=== PATIENT | male | born 1950 | race Hispanic/Latino ===

== ENCOUNTER 2019-05-27 09:33 | Inpatient (IN) ==
[2019-05-27] MEDS ORDERED: HUMULIN R 100 UNIT in NS 100 ML IV SCH ×2 (10:00→12:15)
[2019-05-27] MEDS ORDERED: MAGNESIUM SULFATE 2 GM/S.W.I. 2 GM/50 ML IVPB IV PRN ×2 (10:00→12:06)
[2019-05-27] MEDS ORDERED: D50W SYRINGE IV PRN ×3 (10:00→12:06)
[2019-05-27] MEDS ORDERED: NS 1,000 ML IV ONE ×3 (10:00→12:19)
[2019-05-27] MEDS ORDERED: HUMULIN R IV ONE (10:00)
[2019-05-27] MEDS ORDERED: POTASSIUM CHLORIDE 20 MEQ/SWI 20 MEQ/100 ML IVPB IV PRN ×3 (10:00→12:06)
[2019-05-27] MEDS ORDERED: POTASSIUM CHLORIDE 20% LIQUID PO PRN ×2 (10:00→12:06)
[2019-05-27] MEDS ORDERED: POTASSIUM CHLORIDE 10% LIQUID PO PRN ×2 (10:00→12:06)
[2019-05-27] MEDS ORDERED: SODIUM BICARBONATE 8.4% 100 MEQ in STERILE WATER INJ. 500 ML IV PRN ×2 (10:00→12:06)
[2019-05-27] MEDS ORDERED: SODIUM PHOSPHATE 30 MMOL in D5W 250 ML IV PRN ×2 (10:00→12:06)
[2019-05-27] MEDS ORDERED: NS 1,000 ML IV SCH (10:00)
--- NOTE | 2019-05-27 10:13 | PROVIDER DOCUMENTATION ---
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 is 68 yom that presents with c/o increased thirst and urination. Pt. denies any medical Hx and reports no allergies. Pt. denies any N/V but has reported some blurred vision. Location of Pain/Injury: reports: none. denies: head, face, mouth, neck, chest, upper extremity, hand(s), abdomen, back, pelvis, genitalia, lower extremity, feet, upper body, lower body, generalized, other Pain Radiation: reports: no radiation. denies: arm(s), back, buttocks, chest, epigastric, feet, groin, jaw, flank (L), legs (lower), LLQ, LUQ, neck, periumbilical, flank (R), RLQ, RUQ, shoulder(s), scapula, scrotal, sternal notch, suprapubic, legs (upper), urethral, vaginal, other Quality of Pain: reports: aching. denies: burning, pressure, tightness Severity: reports: mild. denies: moderate, severe Onset/Duration: reports: unsure, gradual Timing: reports: still present. denies: improving, intermittent, getting worse Context/Activities at Onset: reports: none. denies: light activity, moderate activity, vigorous activity, recent emotional stress, recent physical stress, recent trauma history, possible bad food, cold exposure, eating, out of country travel, rest, sleep, sexual activity, other Modifying Factors: improves with: nothing Associated Symptoms: reports: other (Blurred vision). denies: denies symptoms, anxiety, arm pain, back/neck pain, chest pain, constipation, cough, diaphoresis, diarrhea, dizziness, EENT symptoms, fatigue, fever/chills, genitourinary problems, headaches, heartburn, joint pain, loss of appetite, malaise, muscle aches, sinus congestion/drainage, nausea, rash, seizure, shortness of breath, sensory/motor loss, pain with inspiration, swelling/mass in abdomen, syncope, vomiting, weakness, trouble walking Similar Symptoms Previously?: Yes Recently seen or treated by another doctor?: No - Diabetes Related Context Context: reports: high blood sugar, other (Polyuria/polydipsia) Review of Systems - Adult - REVIEW OF SYSTEMS - ADULT Constitutional: reports: no symptoms reported Eyes: reports: see HPI, blurred vision. denies: dry eyes, double vision, redness Ears, Nose, Mouth & Throat: reports: no symptoms reported Cardiovascular: reports: no symptoms reported Respiratory: reports: no symptoms reported Gastrointestinal: reports: no symptoms reported Genitourinary: reports: no symptoms reported Musculoskeletal: reports: no symptoms reported Integumentary: reports: no symptoms reported Neurological: reports: no symptoms reported Psychiatric: reports: no symptoms reported Endocrine: reports: see HPI, increased thirst, polyuria. denies: change in skin pigment, cold intolerance, heat intolerance Past History - Adult - PAST MEDICAL HISTORY-ADULT Review of Records: reports: Old Records Reviewed, Nursing Assessment Review, Medications Reviewed, Social history reviewed & non-contributory. - IMMUNIZATION STATUS Childhood Immunizations: See Nurse Assessment Flu Vaccine: See Nurse Assessment - FAMILY HISTORY Family History: reviewed, not pertinent - SOCIAL HISTORY Smoking: denies Physical Exam-General - PHYSICAL EXAM-ADULT Initial Vital Signs Reviewed: Yes - CONSTITUTIONAL General Appearance: alert, no apparent distress, thin. negative: anxious, slow to respond, obtunded, combative - EYES Eyes: PERRL/EOMI, pink conjunctivae - HEAD, EARS, NOSE, MOUTH & THROAT HENMT: normocephalic/atraumatic, moist mucous membranes - NECK Neck: non-tender, full range of motion, supple, normal inspection - RESPIRATORY Respiratory: lungs clear, normal breath sounds - CARDIOVASCULAR Cardiovascular: normal peripheral pulses, regular rate, rhythm, no edema - GASTROINTESTINAL (ABDOMEN) Abdominal Exam: normal bowel sounds, non tender, soft - LYMPHATIC Lymphatic: no adenopathy - MUSCULOSKELETAL Back Exam: normal inspection, no CVA tenderness, no vertebral tenderness Extremity: normal range of motion, non-tender, normal gait, normal inspection Peripheral Pulses: radial (R): 2+, radial (L): 2+ - SKIN Integumentary: normal color, normal turgor, warm/dry - NEUROLOGIC Neurologic: grossly normal, no motor/sensory deficits - PSYCHIATRIC Psych/Mental Status: normal mood/affect, normal thought content, normal thought process, oriented x 3. negative: anxious, paranoid, tearful Progress - PLAN OF CARE/RESULTS Progress/Plan/Lab Results: Vital Signs - 8 hr 05/27/19 09:39 Temperature 97.7 F Pulse Rate 113 H Respiratory Rate 20 Blood Pressure 143/98 O2 Sat by Pulse Oximetry 94 L Laboratory Results - last 24 hr 05/27/19 09:53 POC Glucose 500 H Orders Category Date Time Status Cardiac Monitoring DIRECTED Care 05/27/19 10:00 Active FSBS/Accucheck Result Q15M Care 05/27/19 10:00 Active FSBS/Accucheck Result Q1H Care 05/27/19 10:00 Active Hypoglycemia/FSBS <50 or Range of 50-70 PRN Care 05/27/19 10:00 Active Notify Physician ORDERED Care 05/27/19 10:00 Active Saline Loc DIRECTED Care 05/27/19 10:00 Active Saline Loc NOW Care 05/27/19 10:00 Active Vital Signs Order Q1H Care 05/27/19 10:00 Active ABG [RESP] Routine Lab 05/27/19 10:00 Ordered ACETONE SERUM [CHEM] Stat Lab 05/27/19 10:00 Uncollected CBC WITH NO DIFF [HEME] Stat Lab 05/27/19 10:00 Uncollected CK PROFILE [SP CHEM] Stat Lab 05/27/19 10:00 Uncollected COMPREHENSIVE METABOLIC PANEL [CHEM] Stat Lab 05/27/19 10:00 Uncollected LACTATE, PLASMA [CHEM] Stat Lab 05/27/19 10:00 Uncollected MAGNESIUM [CHEM] Stat Lab 05/27/19 10:00 Uncollected PHOSPHORUS [CHEM] Stat Lab 05/27/19 10:00 Uncollected POTASSIUM [CHEM] Timed Lab 05/27/19 10:00 Uncollected TROPONIN T Stat Lab 05/27/19 10:00 Uncollected URINALYSIS [URINALYSIS] Stat Lab 05/27/19 10:00 Uncollected URINE DRUG SCREEN Stat Lab 05/27/19 10:00 Uncollected 0.9% Sodium Chloride Inj [Ns] 1,000 ml Med 05/27/19 10:00 Ordered IV 500 mls/hr 0.9% Sodium Chloride Inj [Ns] 1,000 ml Med 05/27/19 10:00 Active IV 999 mls/hr 0.9% Sodium Chloride Inj [Ns] 100 ml Med 05/27/19 10:00 Ordered Insulin Human Regular [Humulin R] 100 unit IV Per Protocol mls/hr Dextrose 50% Syringe [D50w Syringe] Med 05/27/19 10:00 Ordered 25 ml IV PRN PRN Dextrose 50% Syringe [D50w Syringe] Med 05/27/19 10:00 Ordered 50 ml IV PRN PRN Insulin Human Regular [Humulin R] Med 05/27/19 10:00 Discontinued 10 unit IV ONCE ONE Magnesium Sulfate 2 gm/S.w.i. Med 05/27/19 10:00 Ordered 2 gm in 50 ml IV ONCE PRN Potassium Chloride 10% Liquid Med 05/27/19 10:00 Ordered 20 meq PO ONCE PRN PRN Potassium Chloride 20 Meq/Swi Med 05/27/19 10:00 Ordered 20 meq in 100 ml IV ONCE PRN Potassium Chloride 20 Meq/Swi Med 05/27/19 10:00 Ordered 20 meq in 100 ml IV ONCE PRN Potassium Chloride 20% Liquid Med 05/27/19 10:00 Ordered 40 meq PO ONCE PRN PRN Sodium Bicarbonate 8.4% 100 meq Med 05/27/19 10:00 Ordered Water, Sterile Inj [Sterile Water Inj] 500 ml IV ONCE PRN Sodium Phosphate 30 mmol Med 05/27/19 10:00 Ordered Dextrose 5%-Water Inj [D5w] 250 ml IV ONCE PRN Hypoglycemia Stat Oth 05/27/19 10:00 Ordered EKG [EKG] Routine Ther 05/27/19 10:00 Ordered Laboratory Tests 05/27/19 05/27/19 05/27/19 09:53 10:08 10:08 WBC 16.43 H RBC 6.31 H Hgb 19.7 H Hct 61.7 H MCV 97.8 MCH 31.2 H MCHC 31.9 L RDW Std Deviation 14.1 Plt Count 266 MPV 11.7 H PT INR PTT (Actin FS) Sodium 128 L Potassium 5.1 Chloride 90 L Carbon Dioxide 19 L Anion Gap 19 BUN 42 H Creatinine 1.5 H Estimated GFR/1.73 m2 47 BUN/Creatinine Ratio 28 Glucose 1432 H* POC Glucose 500 H Calculated Osmolality 342 Calcium 8.9 Phosphorus 5.7 H Magnesium 2.8 H Total Bilirubin 0.67 AST 13 ALT 22 Alkaline Phosphatase 156 H Creatine Kinase 92 Troponin T Total Protein 6.4 Albumin 3.6 Globulin 2.8 Albumin/Globulin Ratio 1.3 Plasma Lactate Acetone Level SMALL A 05/27/19 05/27/19 05/27/19 10:08 10:08 10:08 WBC RBC Hgb Hct MCV MCH MCHC RDW Std Deviation Plt Count MPV PT 14.5 INR 1.11 PTT (Actin FS) 26.4 Sodium Potassium Chloride Carbon Dioxide Anion Gap BUN Creatinine Estimated GFR/1.73 m2 BUN/Creatinine Ratio Glucose POC Glucose Calculated Osmolality Calcium Phosphorus Magnesium Total Bilirubin AST ALT Alkaline Phosphatase Creatine Kinase Troponin T < 0.010 Total Protein Albumin Globulin Albumin/Globulin Ratio Plasma Lactate 3.3 H Acetone Level 05/27/19 11:35 WBC RBC Hgb Hct MCV MCH MCHC RDW Std Deviation Plt Count MPV PT INR PTT (Actin FS) Sodium Potassium Chloride Carbon Dioxide Anion Gap BUN Creatinine Estimated GFR/1.73 m2 BUN/Creatinine Ratio Glucose POC Glucose 500 H Calculated Osmolality Calcium Phosphorus Magnesium Total Bilirubin AST ALT Alkaline Phosphatase Creatine Kinase Troponin T Total Protein Albumin Globulin Albumin/Globulin Ratio Plasma Lactate Acetone Level Discussed results and plan of care with patient. Patient agrees with plan and verbalizes understanding. Result Diagrams: 05/27/19 10:08 05/27/19 10:08 - XRAY 1 XRAY Study: Chest ([facility] - [address] [facility] [address] [place], [place] [id number] [facility] - [address] [place] [address] Department of Imaging Patient: NIGEL TELLES Date: 05/27/19#: [id number] : 1950DM Status: PRE ERAcct#: [id number] Age/Sex: 68/MRoom/Bed: Loc: ED Ordering Physician: Juan Jose Knox Family Physician: None,PCP Reason for Procedure: admit ___ Signed EXAM: CHEST-1 VIEW 05/27/2019 HISTORY: admit TECHNIQUE: AP upright chest at 1034 COMMENT: The inspiration is suboptimal. There is no evidence of acute cardiac or pulmonary disease. There are no previous studies. IMPRESSION: No acute disease. Electronically signed by Bob Andersen 05/27/2019 10:35 AM 05/27/19 1035 Interpreting Physician: Bob Andersen MD Dictated Date/Time: 05/27/19 1034 cc: Juan Jose Knox; None,PCP) XRAY Interpretation: See note - CT/MRI 1 CT Study: Head ([facility] - [address] [facility], [address], [place] [address] [facility] - [address] [place] [address] Department of Imaging Patient: NIGEL TELLES Date: 05/27/19#: [id number] : 1950DM Status: PRE ERAcct#: [id number] Age/Sex: 68/MRoom/Bed: Loc: ED Ordering Physician: Juan Jose Knox Family Physician: None,PCP Reason for Procedure: Blurred vision Signed EXAM: CT HEAD W/O CONTRAST 05/27/2019 HISTORY: Blurred vision TECHNIQUE: This exam was performed using automated exposure control, adjustment of mA or kV according to patient size, and/or use of iterative reconstruction technique. COMMENT: There is no evidence of mass effect, bleed, or abnormal extra-axial fluid collection. The calvarium is intact. The visualized paranasal sinuses are clear. There are no previous studies available for comparison. There is an empty sella. IMPRESSION: No evidence of acute intracranial disease. Electronically signed by Bob Andersen 05/27/2019 10:34 AM 05/27/19 1034 Interpreting Physician: Bob Andersen MD Dictated Date/Time: 05/27/19 1033 cc: Juan Jose Knox; None,PCP) CT Results: See note - CONSULTS/PCP/HOSPITALIST Notification #1 *Consult/PCP/Hospitalist*: Brianna for Dr. Dacosta Time Discussed: 11:47 Reason/Comments: Admission Consult Disposition: Will see in ED, Admit Departure - Departure Date of Disposition Decision: 05/27/19 Time of Disposition Decision: 11:38 DIAGNOSIS: DKA (diabetic ketoacidoses) Qualifiers: Diabetes mellitus type: other specified (including [place]) Diabetes mellitus complication detail: without coma Qualified Code(s): E13.10 - Other specified diabetes mellitus with ketoacidosis without coma Disposition: ADMITTED INPATIENT 09 Certified Medical Emergency: Emergent Condition: Serious Referrals and Follow-Ups: None,PCP [Primary Care Provider] - - Critical Care Note This patient required my direct & personal management of CC.: Yes Total Time (mins): 35 Critical Care Statement: This patient required my direct personal management to treat or rule out processes, the absence of which, could potentiallly result in sudden, clinically significant life or limb threatening deterioration. Attestation - Physician/ CHAITANYA Attestation Patient care was provided by Advanced Practice Provider:: Yes Advanced Practice Provider:: Juan Jose Knox Advanced Practice Provider documentation review:: The Mid-level provider documentation, treatment plan and medical decision making was reviewed by the physician who agrees with all treatment and medical decision making by the P. The physician spent face to face time with patient:: No Advanced Practice Provider documentation review:: Supervising physician onsite and consulted in the evaluation and care of this patient. The physician did not have a face to face encounter with the patient.
[2019-05-27 10:32] LABS: HEMATOCRIT 61.7 % (42.0-52.0); HEMOGLOBIN 19.7 g/dL (14.0-18.0); MCH 31.2 PG (27-31); MCHC 31.9 g/dL (33-37); MCV 97.8 FL (81-99); MPV 11.7 FL (7.4-10.4); RBC 6.31 XMIL (4.7-6.1); RDW 14.1 % (11.5-14.5); WBC 16.43 X1000 (4.8-10.8)
--- NOTE | 2019-05-27 10:37 | Diag Imaging Result Doc PS360 ---
EXAM: CHEST-1 VIEW 05/27/2019 HISTORY: admit TECHNIQUE: AP upright chest at 1034 COMMENT: The inspiration is suboptimal. There is no evidence of acute cardiac or pulmonary disease. There are no previous studies. IMPRESSION: No acute disease. Electronically signed by Bob Andersen 05/27/2019 10:35 AM
--- NOTE | 2019-05-27 10:37 | Diag Imaging Result Doc PS360 ---
EXAM: CT HEAD W/O CONTRAST 05/27/2019 HISTORY: Blurred vision TECHNIQUE: This exam was performed using automated exposure control, adjustment of mA or kV according to patient size, and/or use of iterative reconstruction technique. COMMENT: There is no evidence of mass effect, bleed, or abnormal extra-axial fluid collection. The calvarium is intact. The visualized paranasal sinuses are clear. There are no previous studies available for comparison. There is an empty sella. IMPRESSION: No evidence of acute intracranial disease. Electronically signed by Bob Andersen 05/27/2019 10:34 AM
[2019-05-27 10:47] LABS: AGAP 19; ALB/GLOB RATIO 1.3; ALBUMIN 3.6 g/dL (3.5-5.0); ALKALINE PHOSPHATASE 156 U/L (32-122); BUN 42 mg/dL (8-22); CALCIUM 8.9 mg/dL (8.8-10.2); CHLORIDE 90 mmol/L (98-107); CK PROFILE 92 U/L (24-204); CREATININE 1.5 mg/dL (0.7-1.2); ESTIMATED GFR 47; GOT 13 U/L (10-34); GPT 22 U/L (10-44); MAGNESIUM 2.8 mg/dL (1.5-2.7); PHOSPHORUS 5.7 mg/dL (2.7-4.5); POTASSIUM 5.1 mmol/L (3.5-5.1); SODIUM 128 mmol/L (136-145); TCO2 19 mmol/L (25-35); TOTAL BILIRUBIN 0.67 mg/dL (0.20-1.00); TOTAL PROTEIN 6.4 g/dL (6.3-8.3)
[2019-05-27 11:17] LABS: INR 1.11; PROTIME 14.5 Seconds (11.0-16.0)
[2019-05-27 11:18] LABS: ACETONE SERUM SMALL (NEGATIVE); PTT 26.4 Seconds (22.3-41.8)
[2019-05-27 11:22] LABS: COSMO 342; GLUCOSE 1432 mg/dL (70-104)
[2019-05-27 11:52] LABS: ALLEN TEST YES; BE -6.3 mmoll (-3.0-3.0); BLOOD TYPE ARTERIAL; HCO3-(ACT) 19.9 mmoll (20.0-26.0); METHB 1.1 % (0.0-1.5); O2(CT) 26.2 mL/dL (15.0-23.0); O2HB 94.2 % (95.0-99.0); PCO2(98.6) 34 mmHg (35-45); PO2(98.6) 75 mmHg (60-100); SAMPLE BLOOD; THB 19.8 g/dL (11.5-17.4); pH(98.6) 7.34 (7.35-7.45)
[2019-05-27 11:53] LABS: MODALITY ROOM AIR
[2019-05-27 12:06] LABS: URINE SOURCE CLEAN CATCH
[2019-05-27] MEDS ORDERED: COMPAZINE IV PRN (12:06)
[2019-05-27] MEDS ORDERED: TYLENOL PO PRN (12:06)
[2019-05-27] MEDS ORDERED: POTASSIUM CHLORIDE 40 MEQ/SWI 40 MEQ/100 ML IVPB IV PRN (12:06)
[2019-05-27] MEDS ORDERED: ZOFRAN IV PRN (12:06)
[2019-05-27] MEDS ORDERED: D5 NS 1,000 ML IV PRN (12:06)
[2019-05-27 12:10] LABS: BILIRUBIN URINE NEGATIVE (NEGATIVE); BLOOD URINE NEGATIVE (NEGATIVE); COLOR STRAW; GLUCOSE URINE >1000 mg/dL (NEGATIVE); KETONE URINE TRACE mg/dL (NEGATIVE); LEUKOCYTES URINE NEGATIVE (NEGATIVE); NITRITE URINE NEGATIVE (NEGATIVE); PROTEIN URINE NEGATIVE (NEGATIVE); SP GRAVITY URINE 1.033; TURBIDITY URINE CLEAR (CLEAR); UROBILINOGEN URINE NORMAL (NORMAL)
[2019-05-27 12:12] LABS: UR EPITHELIAL CELLS <10 /HPF (<10); URINE BACTERIA NEGATIVE /HPF; URINE RBC <10 /HPF (<10); URINE WBC <10 /HPF (<10)
[2019-05-27] MEDS ORDERED: VANCOMYCIN IV PER PHARMACY MISC SCH (12:15)
[2019-05-27] MEDS ORDERED: NORCO-7.5 PO PRN (12:16)
[2019-05-27 12:32] LABS: UR AMPHETAMINES QUAL NONE DETECTED (NONE DETECT); UR BARBITUATES QUAL NONE DETECTED (NONE DETECT); UR BENZODIAZEPIN QUAL NONE DETECTED (NONE DETECT); UR CANNABINOIDS QUAL NONE DETECTED (NONE DETECT); UR COCAINE QUAL NONE DETECTED (NONE DETECT); UR METHADONE QUAL NONE DETECTED (NONE DETECT); UR OPIATES QUAL NONE DETECTED (NONE DETECT); UR OXYCODONE QUAL NONE DETECTED (NONE DETECT); UR PCP QUAL NONE DETECTED (NONE DETECT)
[2019-05-27 12:36] LABS: AMYLASE 30 U/L (20-200); CK PROFILE 96 U/L (24-204); LIPASE 60 U/L (13-60)
[2019-05-27 13:00] LABS: HEMOGLOBIN A1C 10.7 % (4.8-6.0)
--- NOTE | 2019-05-27 13:06 | ED EKG INTERP ---
EKG Interpretation - EKG Time of EKG reading by physician:: 11:37 EKG Read and Signed by:: Carli Zepeda EKG Interpretation (*Must complete 3 of following elements*): Abnormal Rate: 108 Rhythm: Sinus tachycardia QRS: LBB Attestation - Physician/ CHAITANYA Attestation Patient care was provided by Advanced Practice Provider:: No The physician spent face to face time with patient:: No Advanced Practice Provider documentation review:: Supervising physician onsite and consulted in the evaluation and care of this patient. The physician did not have a face to face encounter with the patient.
[2019-05-27 13:07] LABS: FREE T4 1.1 ng/dL (0.93-1.70); TSH 1.59 uIUmL (0.27-4.20)
[2019-05-27] MEDS: ROCEPHIN 1 GM in NS 50 ML IV SCH (13:35)
--- NOTE | 2019-05-27 14:17 | Diag Imaging Result Doc PS360 ---
EXAM: CT THORAX/ABD/PELVIS W/O CON 05/27/2019 HISTORY: sob, n/v, abd pain TECHNIQUE: This exam was performed using automated exposure control, adjustment of mA or kV according to patient size, and/or use of iterative reconstruction technique. COMMENT: Thorax: There are no previous studies. There is no evidence of significant adenopathy. There are no abnormal fluid collections. There are spondylotic changes in the thoracic spine. No evidence of acute bony abnormality is present. There is no evidence of acute pulmonary parenchymal disease. Minimal pleural-based interstitial opacity is present which is probably due to fibrosis. Abdomen/pelvis without contrast: There is motion artifact and beam hardening artifact. There is a 2 mm calculus in the upper pole of the right kidney. There is no evidence of hydronephrosis on either side. There is no evidence of ureterolithiasis. There are no apparent gallstones. The adrenal glands and aorta are not enlarged. There is stool throughout much of the colon. The small bowel is not distended. There are fecaliths in the appendix. The appendix is not distended or inflamed in appearance. There is diverticulosis in the sigmoid colon without evidence of acute diverticulitis. The urinary bladder is unremarkable. There are injection granulomata in the subcutaneous fat over the buttocks. There are spondylotic changes in the lumbar spine. IMPRESSION: Minimal right nephrolithiasis. Constipation. Diverticulosis coli. Electronically signed by Bob Andersen 05/27/2019 2:15 PM
[2019-05-27] MEDS ORDERED: VANCOMYCIN 1.5 GM in NS 250 ML IV ONE (16:00)
[2019-05-27] MEDS: NS 1,000 ML IV SCH ×2 (16:46→22:38)
--- NOTE | 2019-05-27 17:48 | HISTORY AND PHYSICAL ---
PRIMARY CARE PROVIDER: No one. CHIEF COMPLAINT: Polyuria, polydipsia and polyphagia, along with a cough, fatigue and weakness. HISTORY OF PRESENT ILLNESS: Mr. Bo Duval is a 68-year-old [facility] male, who is only been here for about a month. Comes in with complaints of 1 week's worth of weakness, having to use a cane along with excessive thirst, excessive hunger and dry mouth. He has also had a cough with yellow phlegm. He only speaks German with the [place] dialect only. Currently Dr. Dacosta is at the bedside for evaluation. He denies any pain. States that he has had no fever, no chills. No shortness of breath. No diarrhea or constipation. Evaluation revealed that he had an initial blood glucose level of 1432. His pH was essentially normal. He did have some acidosis with some mild acute kidney injury. He was initiated on a DKA protocol. He denies any medical history. He has never had a diagnosis of diabetes, so this is new for him. It is actually more consistent with a nonketotic hyperosmolar hyperglycemic episode, and so we will transfer him to the ICU, do an insulin drip and replace electrolytes as needed. We will also give him aggressive IV fluid hydration. PAST MEDICAL HISTORY: None. SURGICAL HISTORY: None. SOCIAL HISTORY: Denies tobacco, alcohol or illicit drug use. He has only been here from [facility] for 1 month. He lives with his son, and he has only had to use a cane for about 1 week FAMILY HISTORY: None. ALLERGIES: No known drug allergies. HOME MEDICATIONS: None. REVIEW OF SYSTEMS: Fourteen-point review of systems was completed, and all were negative except those mentioned above in the HPI. Also, he has had some blurred vision. PHYSICAL EXAMINATION: VITAL SIGNS: Temperature 97.7, heart rate 97, respiratory rate 23, blood pressure 159/100, O2 saturation 97%. He is 5 feet 3-1/2 inches tall, weight 131 pounds, with a BMI of 22.8. GENERAL: Mr. Bo Duval is a 68-year-old [facility] man, German-speaking only. Is able to answer questions appropriately. HEENT: Atraumatic, normocephalic. Pupils equal, round, reactive to light. Extraocular movements intact. Mucous membranes are dry. NECK: Trachea midline. CARDIOVASCULAR: S1, S2. Regular rate and rhythm. No rubs, gallops, murmurs. No lower extremity edema, +2 dorsalis and radial pulses. Negative for JVD or carotid bruits. PULMONARY: Clear to auscultation. Bilateral breath sounds. No accessory muscle use or work of breathing noted. GI: Soft, nontender, nondistended. Positive bowel sounds x4. EXTREMITIES: Moves all extremities equally with full range of motion. NEUROLOGIC: A and O x3. Follows commands. Sensory is intact. SKIN: Warm, dry, intact. LABORATORY DATA: White blood cells 16,000, hemoglobin 19, hematocrit 61, platelet count 266. INR is 1.11, PTT is 26.4. ABGs on room air: pH of 7.34, pCO2 of 34, pO2 of 75, bicarb of 19, base excess -6, saturation 94%, lactate 3.1. Sodium 128, potassium 5.1, BUN 42, creatinine 1.5, glucose 1432. Hemoglobin A1c is 10.7. Phosphorus 5.7, magnesium 2.8, bilirubin 0.67, direct bilirubin 0.20. AST 13, ALT 22, alkaline phosphatase is 156. CK 96, troponin less than 0.01. Albumin 3.6, triglycerides 445, total cholesterol 138. Amylase is 30, lipase 60, lactate 3.3. TSH 1.59, free T4 is 1.10. Urinalysis: Glucose greater than 1000, trace ketones, otherwise negative. Urine drug screen negative. Acetone small. IMAGING: Chest x-ray: No acute disease. Head CT: No acute disease. Chest/abdomen/pelvic CT. Minimal right nephrolithiasis, constipation and diverticulosis. EKG: sinus tachycardia, rate 108. ASSESSMENT/PLAN: 1. New diagnosis of diabetes mellitus type 2 with current diagnosis of nonketotic hyperosmolar hyperglycemia syndrome and a presenting blood glucose level greater than 1000. He will be started on an insulin drip, IV fluid hydration and electrolytes and transferred to ICU. 2. Hypertriglyceridemia. May consider adding fenofibrate. It may improve with just receiving IV insulin. 3. Leukocytosis, could be reactive. There is lactic acidosis. There is tachycardia, but there is no obvious source of infection, and he does not have a fever. He denies all symptoms of infection, except he does say he coughs up yellow phlegm, and so he will be on Rocephin for now with that, and he is on vancomycin, so we are going to treat him like he has sepsis. 4. Acute kidney injury secondary to dehydration. He is getting aggressive IV fluid hydration. Will recheck kidney function in the morning. 5. Deep venous thrombosis prophylaxis with Lovenox. Dictated by LEANN Loaiza for Tee Nava MD Addendum: Patient seen and examined by myself. Agree with LEANN note. It reflects my assessment and plan. Patient is being admitted to hospital for hyperosmolar non ketotic state secondary to new onset diabetes mellitus. He will be started on insulin drip and send him to ICU. Will monitor patient closely. cc: LEANN Loaiza MD [facility]
[2019-05-27 18:01] LABS: AGAP 15; BUN 29 mg/dL (8-22); CALCIUM 7.9 mg/dL (8.8-10.2); CHLORIDE 111 mmol/L (98-107); COSMO 313; ESTIMATED GFR > 60; GLUCOSE 444 mg/dL (70-104); MAGNESIUM 2.4 mg/dL (1.5-2.7); PHOSPHORUS 2.1 mg/dL (2.7-4.5); POTASSIUM 3.8 mmol/L (3.5-5.1); SODIUM 145 mmol/L (136-145); TCO2 19 mmol/L (25-35)
[2019-05-27 21:18] LABS: AGAP 14; BUN 25 mg/dL (8-22); CALCIUM 8.3 mg/dL (8.8-10.2); CHLORIDE 119 mmol/L (98-107); COSMO 315; CREATININE 0.9 mg/dL (0.7-1.2); ESTIMATED GFR > 60; GLUCOSE 198 mg/dL (70-104); MAGNESIUM 2.3 mg/dL (1.5-2.7); PHOSPHORUS 2.1 mg/dL (2.7-4.5); POTASSIUM 4.1 mmol/L (3.5-5.1); SODIUM 154 mmol/L (136-145); TCO2 21 mmol/L (25-35)
[2019-05-27 23:18] LABS: AGAP 14; BUN 24 mg/dL (8-22); CHLORIDE 120 mmol/L (98-107); COSMO 315; CREATININE 0.8 mg/dL (0.7-1.2); ESTIMATED GFR > 60; GLUCOSE 198 mg/dL (70-104); MAGNESIUM 2.3 mg/dL (1.5-2.7); PHOSPHORUS 2.4 mg/dL (2.7-4.5); POTASSIUM 4.2 mmol/L (3.5-5.1); SODIUM 154 mmol/L (136-145); TCO2 20 mmol/L (25-35)
[2019-05-27] MEDS ORDERED: 1/2 NS 1,000 ML IV SCH (23:45)
[2019-05-27] MEDS ORDERED: 1/2 NS 1,000 ML IV ONE (23:55)
[2019-05-28] MEDS: HUMALOG SUBQ SCH ×6 (00:19→22:46)
[2019-05-28 05:02] LABS: ALLEN TEST YES; BE -4.1 mmoll (-3.0-3.0); BLOOD TYPE ARTERIAL; HCO3-(ACT) 21.6 mmoll (20.0-26.0); O2(CT) 22.7 mL/dL (15.0-23.0); O2HB 95.3 % (95.0-99.0); PCO2(98.6) 38 mmHg (35-45); PO2(98.6) 84 mmHg (60-100); SAMPLE BLOOD; THB 16.9 g/dL (11.5-17.4); pH(98.6) 7.35 (7.35-7.45)
[2019-05-28 05:03] LABS: MODALITY ROOM AIR
[2019-05-28 05:40] LABS: ESTIMATED GFR > 60
[2019-05-28 05:44] LABS: BASO# 0.01 X1000 (0.0-0.2); BASO% 0.1 % (0.0-0.8); EOS# 0.45 X1000 (0.0-0.7); EOS% 2.4 % (0.0-10.0); HEMATOCRIT 47.2 % (42.0-52.0); IMM GRAN# 0.07 X1000 (0.0-0.04); IMM GRAN% 0.4 % (0.0-0.5); LYMPH% 8.1 % (20.5-51.1); MCH 31.8 PG (27-31); MCHC 33.9 g/dL (33-37); MCV 93.8 FL (81-99); MONO# 0.87 X1000 (0.11-0.59); MONO% 4.7 % (1.7-9.3); MPV 11.4 FL (7.4-10.4); NEUT# 15.61 X1000 (1.4-6.5); NEUT% 84.3 % (42.2-75.2); PLT 165 X1000 (130-400); RBC 5.03 XMIL (4.7-6.1); RDW 13.4 % (11.5-14.5); WBC 18.51 X1000 (4.8-10.8)
[2019-05-28 05:46] LABS: AGAP 10; BUN 23 mg/dL (8-22); CHLORIDE 114 mmol/L (98-107); COSMO 299; CREATININE 0.7 mg/dL (0.7-1.2); GLUCOSE 286 mg/dL (70-104); PHOSPHORUS 2.5 mg/dL (2.7-4.5); POTASSIUM 4.1 mmol/L (3.5-5.1); SODIUM 143 mmol/L (136-145); TCO2 19 mmol/L (25-35)
[2019-05-28] MEDS ORDERED: CALCIUM GLUCONATE 1 GM in NS 50 ML IV ONE (06:18)
[2019-05-28] MEDS ORDERED: 1/2 NS 1,000 ML IV SCH (06:19)
[2019-05-28 06:23] LABS: INR 1.16
[2019-05-28 06:24] LABS: PTT 29.2 Seconds (22.3-41.8)
[2019-05-28] MEDS: PRILOSEC PO SCH (06:24)
--- NOTE | 2019-05-28 06:47 | EKG Report ---
Test Performed on : 05/28/2019 06:37:41 AM Test Reason : dka Blood Pressure : / mmHG Vent. Rate : 074 BPM Atrial Rate : 074 BPM P-R Int : 170 ms QRS Dur : 120 ms QT Int : 454 ms P-R-T Axes : 042 -06 107 degrees QTc Int : 503 ms Normal sinus rhythm. Anteroseptal infarct , age undetermined ST & T wave abnormality, consider lateral ischemia Abnormal ECG When compared with ECG of 27-MAY-2019 11:34, (Unconfirmed) Left bundle branch block is no longer present Anteroseptal infarct is now present Confirmed by Jordan RAMIREZ, J Carlos Lanier ([id number]) on 05/29/2019 9:28:59 AM
[2019-05-28] MEDS ORDERED: HUMULIN 70/30 SUBQ SCH (07:00)
[2019-05-28] MEDS ORDERED: SODIUM PHOSPHATE 35 MMOL in NS 250 ML IV ONE (07:18)
[2019-05-28] MEDS ORDERED: CALCIUM GLUCONATE 2 GM in NS 100 ML IV ONE (07:18)
--- NOTE | 2019-05-28 07:48 | PROGRESS NOTE ---
DATE: 05/28/2019 SUBJECTIVE: Patient reports feeling fine. The patient does not speak Slovak and just a little bit to Uzbek. He speaks a [place] dialectic. He denies any complaint upon my evaluation. OBJECTIVE: Vital Signs: Temperature 98.1 degrees, heart rate 75, respiratory rate 17, blood pressure 131/75, O2 saturation 98% on room air. General Examination: This is a 68-year-old male, lying in bed, in no acute distress. Cardiovascular: S1, S2 heard. No murmurs, gallops, or rubs. Regular rate and rhythm. Respiratory: Clear bilaterally to auscultation. No work of breathing. Not using accessory muscles. Abdomen: Soft, nontender to palpation. Bowel sounds present. No organomegaly. Extremities: No clubbing, cyanosis, or edema. Peripheral pulses present in both legs. Neurological: Patient is alert and oriented x3. Moves 4 extremities. LABORATORY DATA: White cell count 18.51, hemoglobin 16.0, hematocrit 47.2, platelets 165,000. ABG shows pH 7.35, with pCO2 38, PO2 84. BMP shows BUN 23 with chloride 114, glucose 286, calcium 7.0 phosphorus 2.5. ASSESSMENT AND PLAN: 1. Nonketotic hyperosmolar hyperglycemia. 2. New onset diabetes mellitus, type 2. 3. Hypertriglyceridemia. 4. Reactive leukocytosis. 5. Acute kidney injury. PLAN: The patient basically was admitted to the hospital for a glucose of 1400. He has been placed on insulin drip that had been stopped last night. Since then, his blood sugar has been more stable. This morning, it is elevated but he never was acidotic. At this time, we are planning to stop completely the insulin drip. We are going to transition to some insulin, in this case 70/30, and metformin as well. We are going to transfer this patient out of the intensive care unit today. Acute kidney injury is completely resolved. There are only some electrolyte abnormalities, the low calcium and phosphorus that we are going to replenish. We will start diabetic diet on this patient. Leukocytosis is uncertain to me. I think it is probably part of the hyperosmolar nonketotic state because we have checked a CT of abdomen and pelvis and chest and we did not find any source of infection. At this point as we mentioned before, we will transfer this patient to a regular room today. cc: Tee Nava MD
[2019-05-28] MEDS: GLUCOPHAGE PO SCH ×2 (08:07→16:14)
[2019-05-28] MEDS ORDERED: INSULIN PEN NEEDLES ONE (08:09)
[2019-05-28] MEDS: LOVENOX SUBQ SCH (08:10)
[2019-05-28] MEDS: ROCEPHIN 1 GM in NS 50 ML IV SCH (11:14)
[2019-05-28] MEDS ORDERED: VANCOMYCIN 1.2 GM in NS 250 ML IV SCH (17:00)
[2019-05-28 21:47] LABS: URINE SOURCE CATH
[2019-05-28 22:04] LABS: BILIRUBIN URINE NEGATIVE (NEGATIVE); BLOOD URINE MODERATE (NEGATIVE); COLOR YELLOW; GLUCOSE URINE 150 mg/dL (NEGATIVE); KETONE URINE NEGATIVE (NEGATIVE); LEUKOCYTES URINE NEGATIVE (NEGATIVE); NITRITE URINE NEGATIVE (NEGATIVE); PROTEIN URINE TRACE mg/dL (NEGATIVE); SP GRAVITY URINE 1.029; TURBIDITY URINE CLEAR (CLEAR); UROBILINOGEN URINE 2 mg/dL (NORMAL)
[2019-05-28 22:08] LABS: UR EPITHELIAL CELLS <10 /HPF (<10); URINE BACTERIA NEGATIVE /HPF; URINE RBC 20-40 /HPF (<10); URINE WBC <10 /HPF (<10)
[2019-05-29] MEDS: PRILOSEC PO SCH ×2 (05:56→11:39)
[2019-05-29] MEDS: HUMALOG SUBQ SCH ×2 (06:26→11:42)
[2019-05-29 07:45] LABS: BASO# 0.04 X1000 (0.0-0.2); BASO% 0.3 % (0.0-0.8); EOS# 0.37 X1000 (0.0-0.7); EOS% 2.8 % (0.0-10.0); HEMATOCRIT 45.7 % (42.0-52.0); HEMOGLOBIN 15.1 g/dL (14.0-18.0); IMM GRAN# 0.07 X1000 (0.0-0.04); IMM GRAN% 0.5 % (0.0-0.5); LYMPH# 2.04 X1000 (1.2-3.4); LYMPH% 15.4 % (20.5-51.1); MCH 31.8 PG (27-31); MCV 96.2 FL (81-99); MONO# 0.75 X1000 (0.11-0.59); MONO% 5.7 % (1.7-9.3); MPV 10.9 FL (7.4-10.4); NEUT# 9.96 X1000 (1.4-6.5); NEUT% 75.3 % (42.2-75.2); PLT 131 X1000 (130-400); RBC 4.75 XMIL (4.7-6.1); RDW 13.3 % (11.5-14.5); WBC 13.23 X1000 (4.8-10.8)
[2019-05-29 08:14] LABS: AGAP 13; ALBUMIN 2.5 g/dL (3.5-5.0); BUN 17 mg/dL (8-22); CALCIUM 7.5 mg/dL (8.8-10.2); CHLORIDE 109 mmol/L (98-107); COSMO 293; CREATININE 0.6 mg/dL (0.7-1.2); ESTIMATED GFR > 60; GLUCOSE 240 mg/dL (70-104); PHOSPHORUS 2.4 mg/dL (2.7-4.5); POTASSIUM 3.9 mmol/L (3.5-5.1); SODIUM 142 mmol/L (136-145); TCO2 20 mmol/L (25-35)
[2019-05-29] MEDS ORDERED: SODIUM PHOSPHATE 40 MMOL in NS 250 ML IV ONE (10:30)
[2019-05-29 11:26] VITALS: BP 124/71
[2019-05-29] MEDS: GLUCOPHAGE PO SCH ×2 (11:36→17:04)
[2019-05-29] MEDS: LOVENOX SUBQ SCH (11:49)
[2019-05-29] MEDS ORDERED: VANCOMYCIN 1.2 GM in NS 250 ML IV SCH (16:00)
--- NOTE | 2019-05-30 10:53 | DISCHARGE SUMMARY ---
ADMISSION DATE: 05/27/2019 DISCHARGE DATE: 05/29/2019 DISCHARGE DIAGNOSES: 1. Hyperosmolar nonketotic state, resolved. 2. Uncontrolled diabetes mellitus type 2. 3. Hypertriglyceridemia. 4. Leukocytosis improved. 5. Acute kidney injury resolved. CONSULTATIONS: None. PROCEDURES: 1. Chest x-ray done on admission showed no acute disease. 2. Chest, abdomen, and pelvis CT showed minimal right nephrolithiasis and constipation with diverticulosis coli. HOSPITAL COURSE: In brief, this is a 60-year-old male, who has been [place] the [place] a [place]. He came because of 1-week history of weakness, he was feeling thirsty, and noticed polyuria as well. He was found out to have blood sugars of almost 1500 so he was placed in the intensive care unit with insulin drip. Then, finally after 1 day we were able to control the blood sugars. He was treated with sliding scale insulin. He was feeling fine. He received aggressive fluid resuscitation, and so far, the kidney function recovered completely. Upon discharge, he will receive a prescription for metformin and glimepiride. The patient is strongly recommended to find primary care doctor or to be seen back in the community clinic. DISCHARGE PHYSICAL EXAMINATION: Vitals: Temperature 98.2 degrees, heart rate 75, respiratory rate 16, blood pressure 124/71, and O2 saturation 98% on room air. General: This is a 68-year- old male lying in bed in no acute distress. Cardiovascular: S1, S2 heard. No murmurs, gallops, or rubs. Regular rate and rhythm. Respiratory: Clear bilaterally to auscultation. No work of breathing or using accessory muscles. Abdomen: Soft, nontender to palpation. Bowel sounds present. No organomegaly. Extremities: No clubbing, cyanosis, or edema. Peripheral pulses present in both legs. Neurological: The patient is alert and oriented x3. Moves all 4 extremities. DISCHARGE DISPOSITION: Home to self-care. LIST OF MEDICATIONS: 1. Metformin as directed 1 tablet p.o. b.i.d. 2. Glimepiride 1 mg 1 tablet p.o. daily. cc: Tee Nava MD
== END 2019-05-29 17:08 | disposition home or self-care (01) | DRG 638 ==
LOC: ED 09:33 → EDIPHOLD 13:07 → ICU 22:06 → 4N 05-28 10:23
PROVIDERS: ATTEND Internal Medicine